=== PATIENT | female | born 1935 | race Caucasian/White ===

== ENCOUNTER 2016-12-31 11:54 | Outpatient (CLI) | payer OTHER ==
[~2016-12-31 11:54] MED LIST: AZATHIOPRINE50 MG PO; COMBIVENT RESPIMAT IN; DIOVAN80 MG PO; FISH OIL PO; ICY HOT TOP; LIDODERM5 % TOP; LOPERAMIDE PO; LORATADINE10 MG PO; METOPROLOL SUCC25 MG PO; MIRALAX3350 N1 PO; PLAVIX75 MG PO; PROVENTIL HFA IN; SERTRALINE HCL50 MG PO; SIMETHICONE PO; SINGULAIR10 MG PO; SPIRONOLACTONE25 MG PO
--- NOTE | 2016-12-31 12:51 | DIAGNOSTIC IMAGING REPORT ---
PROCEDURE: CT ABDOMEN/PELVIS W/O CONTRAST INDICATION: Cirrhosis, blood in the stool and left lower quadrant pain. TECHNIQUE: Noncontrast axial images were obtained of the entire abdomen and pelvis with sagittal and coronal reformations. COMPARISON: Abdominal ultrasound 03/20/[address] abdomen 07/09/2013. FINDINGS: ABDOMEN: Lung base are clear. Mild cardiomegaly. Pacing wires. Liver measures 19.7 cm with irregular contour. No suspicious liver lesion. Esophageal varices. Two calcified gallstones (largest 1.4 cm). Pancreas, spleen and right adrenal gland are normal. Stable 1.6 cm left adrenal mass. Mild bilateral renal cortical atrophy. No evidence of hydronephrosis. Severe atherosclerosis of the aorta. Mild descending colon diverticulosis. PELVIS: Normal appendix. Mild to moderate sigmoid diverticulosis but no inflammatory changes. Atrophic uterus with calcified fibroids. Normal bladder. 3 x 1 cm mid pelvic midline calcification, possibly calcified lymph node. No pelvic mass or free fluid. Moderate degenerative changes of the spine. IMPRESSION: 1. Cirrhotic liver with esophageal varices. 2. Cholelithiasis 3. 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 Bilateral renal atrophy 5. Mild to moderate sigmoid diverticulosis without inflammatory changes 6. Results discussed with Keshia Ham All CT scans at this facility use dose modulation, iterative reconstruction, and/or weight-based dosing when appropriate to reduce radiation dose to as low as reasonably achievable.
== END 2016-12-31 23:00 ==
LOC: CT SRH 11:54 → LAB SRH 11:54 → CT SRH 12:00
DX: K74.60 Unspecified cirrhosis of liver (principal); I85.00 Esophageal varices without bleeding; K92.1 Melena
CPT/HCPCS: 90074; 90100; 95059

== ENCOUNTER 2017-02-04 10:06 | Outpatient (CLI) | payer OTHER ==
--- NOTE | 2017-02-04 11:53 | DIAGNOSTIC IMAGING REPORT ---
PROCEDURE: MG BILATERAL SCREENING W/CAD INDICATION: Screening. New baseline. TECHNIQUE: Bilateral CC and MLO digital views. COMPARISON: None. FINDINGS: Computer-aided detection applied. Mildly dense with a few dystrophic calcifications. Left axillary pacemaker (obscures some detail). IMPRESSION: 1. Negative mammogram. RESULT CODE: 1- Negative. A. A negative report should not delay biopsy if a dominant or clinically suspicious mass is present. 10-15% of cancers are not identified by x-ray. B. A negative report may reinforce clinical impression. C. Adenosis and dense breasts may obscure an underlying neoplasm. D. False positive reports average 6-10%. E.. A yearly screening mammogram is recommended. A reminder letter will be scheduled.
== END 2017-02-04 23:00 ==
LOC: MAM SRH 10:06
DX: Z12.31 Encounter for screening mammogram for malignant neoplasm of breast (principal)

== ENCOUNTER 2017-02-25 11:15 | Outpatient (CLI) | payer OTHER ==
--- NOTE | 2017-02-25 12:02 | DIAGNOSTIC IMAGING REPORT ---
PROCEDURE: XR CHEST 2 VIEW INDICATION: COUGH/DYSPNEA/CHRONIC SYSTOLIC HEART FAILURE TECHNIQUE: PA and lateral views. COMPARISON: 09/28/2006 chest FINDINGS: Pacemaker electrodes in place. Mild cardiomegaly. Lungs clear. IMPRESSION: 1. Mild cardiomegaly. Lungs clear.
== END 2017-02-25 23:00 | disposition home or self-care (01) ==
LOC: LAB SRH 11:15
DX: R05 Cough (principal); I50.22 Chronic systolic (congestive) heart failure; R06.00 Dyspnea, unspecified
CPT/HCPCS: 90047; 90074; 91320